=== PATIENT | male | born 1945 | race Caucasian/White ===

== ENCOUNTER 2019-03-30 18:46 | Emergency (ER) | payer MEDICARE | END 2019-03-30 19:07 | disposition home or self-care (01) | LOC: BURERS 18:46 | DX: I10 Essential (primary) hypertension (principal) | CPT/HCPCS: 99281 ==

== ENCOUNTER 2020-05-29 17:12 | Emergency (ER) | payer MEDICARE ==
--- NOTE | 2020-05-30 07:03 | RAD ---
RIGHT WRIST 3 VIEWS: Date: 05/29/2020 No acute fracture was visualized. The carpal relationships seem normal. The metacarpals appear intact . IMPRESSION: No acute bony finding. POS: HOME
== END 2020-05-29 17:55 | disposition home or self-care (01) ==
LOC: BURERS 17:12
DX: S61.511A Laceration without foreign body of right wrist, initial encounter (principal); E78.5 Hyperlipidemia, unspecified; I10 Essential (primary) hypertension; Z87.891 Personal history of nicotine dependence; W01.0XXA Fall on same level from slipping, tripping and stumbling without subsequent striking against object, initial encounter; Y92.009 Unspecified place in unspecified non-institutional (private) residence as the place of occurrence of the external cause

== ENCOUNTER 2020-09-23 12:45 | Outpatient (CLI) | payer MEDICARE ==
--- NOTE | 2020-09-23 17:20 | CT ---
CT ABDOMEN AND PELVIS WITHOUT CONTRAST: Date: 09-23-2020 Comparison: 02-03-12 FINDINGS: The lung bases are generally clear. There is some calcification along each hemidiaphragm, a bit more than there was in 2012. This could relate to prior asbestos exposure or an old hemithorax. Coronary a rtery calcifications are present. The liver, spleen, pancreas, adrenal glands, gallbladder and abdominal aorta showed no acute findings within the limitation of this noncontrast study. There appears to be some medication in the pyloric portion of the stomach. Regarding the kidneys, there is no sign of hydronephrosis. A tiny nonobstructing calculus was seen in the lower pole of the left kidney and no stones were really evident in the right. A few small subcen timeter marginal areas in each kidney are probably small cysts, particularly the one attached to the upper pole of the left kidney. No large solid masses were seen. Dense calcification is seen in the ao rtic arch and at the origin of each renal artery. The bowel shows no distention or wall thickening. No inflammatory changes are seen around bowel. No f ree air or free fluid was evident. CT of the pelvis shows no pelvic masses, fluid collections, or inflammatory changes. The prostate is about 4.9 cm wide. Some small fat filled inguinal hernias are noted bilaterally, slightly greater on the left than the right. Severe degenerative changes are present in the patient's lumbar spine. Multi level degenerative disc disease is noted. IMPRESSION: 1. No acute renal findings. 2. One tiny nonobstructing calculus seen in the lower pole of the left kidney (1 mm at most). None we re appreciated on the right side. 3. Remainder of scan shows no acute change. 4. Very mild diverticulosis. POS: HOME
== END 2020-09-23 12:46 | disposition home or self-care (01) ==
LOC: BURCT 12:45
PROVIDERS: ATTEND Urology
DX: N20.0 Calculus of kidney (principal); K57.90 Diverticulosis of intestine, part unspecified, without perforation or abscess without bleeding
CPT/HCPCS: 74176

== ENCOUNTER 2021-07-26 08:28 | Emergency (ER) | payer MEDICARE ==
[2021-07-27 13:42] LABS: SARS-CoV-2 PCR by NAA DETECTED (NotDetected)
== END 2021-07-26 09:10 | disposition home or self-care (01) ==
LOC: BURERS 08:28
DX: U07.1 COVID-19 (principal); J06.9 Acute upper respiratory infection, unspecified; E78.5 Hyperlipidemia, unspecified; I10 Essential (primary) hypertension; Z87.891 Personal history of nicotine dependence
CPT/HCPCS: U0003; U0005; 99283

== ENCOUNTER 2021-09-13 19:52 | Emergency (ER) | payer MEDICARE ==
[2021-09-13] MEDS ORDERED: Aspirin Chewable 81 MG TAB ONE ×2 (20:18)
[2021-09-13 20:24] LABS: #Basophils 0.1 thou/uL (0.0-0.2); #Eosinphils 0.3 thou/uL (0.0-0.7); #Lymphocytes 2.8 thou/uL (1.20-3.40); #Monocytes 0.7 thou/uL (0.11-0.59); #Neutrophils 6.5 thou/uL (1.40-6.50); %Basophils 0.6 % (0.0-1.0); %Eosinophils 2.7 % (0.0-10.0); %Lymphocytes 26.9 % (21.0-51.0); %Monocytes 7.1 % (0.0-10.0); %Neutrophils 62.7 % (42.0-75.0); Hemoglobin 15.5 g/dL (14.0-18.0); Mean Corpuscular HGB CONC 33.3 g/dL (32.0-36.0); Mean Corpuscular Hemoglobin 30.9 pg (27.0-31.0); Mean Corpuscular Volume 92.9 fL (78.0-98.0); Mean Platelet Volume 8.6 fL (7.4-10.4); Platelet Count 232 thou/uL (130-400); RBC Distribution Width 12.7 % (11.5-14.5); Red Blood Cell (RBC) Count 5.01 mill/uL (4.70-6.10); White Blood Cell (WBC) Count 10.4 thou/uL (4.8-10.8)
[2021-09-13 20:31] LABS: ALT (SGPT) 25 U/L (8-55); AST (SGOT) 31 U/L (5-34); Albumin 4.3 g/dL (3.4-4.8); Alkaline Phosphatase 85 U/L (40-110); Anion Gap 18 mmol/L (10-20); BUN (Urea Nitrogen) 31 mg/dL (8.4-25.7); Bilirubin, Total 0.5 mg/dL (0.2-1.2); Calc. Creatinine Clearance 0 mL/min (70-130); Calcium 9.9 mg/dL (7.8-10.44); Carbon Dioxide 20 mmol/L (23-31); Chloride 107 mmol/L (98-107); Glucose 162 mg/dL (83-110); Potassium 3.9 mmol/L (3.5-5.1); Protein, Total 7.3 g/dL (5.8-8.1); Sodium 141 mmol/L (136-145)
[2021-09-13] MEDS ORDERED: Amlodipine 5 MG TAB ONE (22:37)
[2021-09-13 22:58] LABS: Troponin I 0.131 ng/mL (< 0.028)
== END 2021-09-13 23:29 | disposition left against medical advice (07) ==
LOC: BURERS 19:52
DX: I21.4 Non-ST elevation (NSTEMI) myocardial infarction (principal); E78.5 Hyperlipidemia, unspecified; I10 Essential (primary) hypertension; Z79.899 Other long term (current) drug therapy
CPT/HCPCS: 71045; 80053; 83880; 84484; 85025; 93005

== ENCOUNTER 2025-06-29 13:17 | Emergency (ER) | payer MEDICARE | END 2025-06-29 14:36 | disposition home or self-care (01) | LOC: BURERS 13:17 | DX: U07.1 COVID-19 (principal); I10 Essential (primary) hypertension; I25.10 Atherosclerotic heart disease of native coronary artery without angina pectoris; E78.5 Hyperlipidemia, unspecified; I25.2 Old myocardial infarction; Z87.891 Personal history of nicotine dependence; Z79.82 Long term (current) use of aspirin; Z79.899 Other long term (current) drug therapy | CPT/HCPCS: 71046; 87426 ==

== ENCOUNTER 2025-10-22 09:26 | Emergency (ER) | payer MEDICARE ==
[2025-10-22 10:00] LABS: #Basophils 0.0 thou/uL (0.0-0.2); #Eosinophils 0.2 thou/uL (0.0-0.7); #Lymphocytes 1.1 thou/uL (1.20-3.40); #Monocytes 0.7 thou/uL (0.11-0.59); #Neutrophils 7.1 thou/uL (1.40-6.50); %Basophils 0.4 % (0.0-1.0); %Eosinophils 1.7 % (0.0-10.0); %Lymphocytes 12.4 % (21.0-51.0); %Monocytes 7.2 % (0.0-10.0); %Neutrophils 78.3 % (42.0-75.0); Hematocrit 47.4 % (42.0-52.0); Hemoglobin 15.7 g/dL (14.0-18.0); Mean Corpuscular Hemoglobin 30.3 pg (27.0-31.0); Mean Corpuscular Volume 91.6 fl (78.0-98.0); Platelet Count 198 10x3/uL (130-400); Red Blood Cell (RBC) Count 5.18 mill/uL (4.70-6.10); White Blood Cell (WBC) Count 9.1 10x3/uL (4.8-10.8)
[2025-10-22] MEDS ORDERED: Metoprolol Tartrate 5 MG (5 mL) VIAL ONE (10:11)
[2025-10-22] MEDS ORDERED: Acetaminophen 500 MG TAB ONE (10:11)
[2025-10-22 10:14] LABS: ALT (SGPT) 14 U/L (Less than 45); AST (SGOT) 17 U/L (11-34); Albumin 3.5 g/dL (3.1-4.5); Alkaline Phosphatase 72 U/L (40-110); Anion Gap 15 mmol/L (10-20); BUN (Urea Nitrogen) 19 mg/dL (8.4-25.7); Bilirubin, Total 0.8 mg/dL (0.3-1.2); Calc. Creatinine Clearance 0 mL/min (70-130); Calcium 9.8 mg/dL (7.8-10.44); Carbon Dioxide 21 mmol/L (23-31); Chloride 109 mmol/L (98-107); Globulin 3.1 g/dL (2.4-3.5); Glucose 107 mg/dL (83-110); Potassium 4.0 mmol/L (3.5-5.1); Sodium 141 mmol/L (136-145)
[2025-10-22 10:15] LABS: Troponin I 0.022 ng/mL (< 0.028)
[2025-10-22 10:24] LABS: INR-International Normal Ratio 1.0; Prothrombin Time 13.3 sec (12.0-14.7)
[2025-10-22 10:25] LABS: PTT 31.8 sec (22.9-36.1)
== END 2025-10-22 13:03 | disposition home or self-care (01) ==
LOC: BURERS 09:26
DX: I10 Essential (primary) hypertension (principal); M79.602 Pain in left arm; I25.2 Old myocardial infarction; Z79.899 Other long term (current) drug therapy
CPT/HCPCS: 71046; 80053; 83880; 84484; 85025; 85610; 85730; 93005; 94760; 96374